=== PATIENT | female | born 2000 | race Two or more races ===

== ENCOUNTER 2021-07-21 10:53 | Emergency (ER) | payer SELFPAY ==
[2021-07-21 11:01] VITALS: BP 121/79; PULSE 80; TEMP 98.8; BMI 21.2
[2021-07-21] MEDS ORDERED: AMOX TR/POT CLAV 875MG/125MG TABLETS (FP) PO ONE (11:04)
[2021-07-21] MEDS ORDERED: AMOX TR/POT CLAV 875MG/125MG TABLETS (FP) ONE (11:23)
== END 2021-07-21 11:49 | disposition home or self-care (01) ==
LOC: FER 10:53
DX: S60.471A Other superficial bite of left index finger, initial encounter (principal); W55.01XA Bitten by cat, initial encounter; Y92.9 Unspecified place or not applicable
CPT/HCPCS: 99283-25